=== PATIENT | male | born 1975 | race Hispanic/Latino ===

== ENCOUNTER → 2021-06-06 | Outpatient (CLI) | payer OTHER ==
[~2021-06-06] MED LIST: HYDR12.54 PO; MELO-108 PO; ROSU10TA28 PO; TRAM50TA4 PO
== END | disposition home or self-care (01) ==
LOC: RAH 15:45
PROVIDERS: ATTEND Family Medicine
DX: J18.9 Pneumonia, unspecified organism (principal)
CPT/HCPCS: 71046

== ENCOUNTER → 2023-08-04 | Outpatient (CLI) | payer BC ==
[~2023-08-04] MED LIST changes: +IOHEXOL 350 MG/ML 100ML INFUS..BTL IV ONE
== END | disposition home or self-care (01) ==
LOC: RAH 10:44
PROVIDERS: ATTEND Internal Medicine Cardiovascular Disease
DX: I20.9 Angina pectoris, unspecified (principal)
CPT/HCPCS: 75574; Q9967